=== PATIENT | male | born 1960 | race Caucasian/White ===

== ENCOUNTER 2018-07-08 16:49 | Emergency (ER) | payer OTHER ==
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
--- NOTE | 2018-07-08 18:34 | RAD REPORT ---
EXAM DESCRIPTION: RAD - Pelvis - 07/08/2018 6:06 pm CLINICAL HISTORY: Fall, pelvis and hip pain COMPARISON: None. TECHNIQUE: AP imaging of the pelvis was obtained. FINDINGS: Patient has advanced degenerative change involving the lower 3 disc levels. There is only partial imaging of the lumbar spine. No significant SI joint finding. Minimal degenerative change at the hip joints. No fracture or acute finding identified. Vascular calcifications are present. IMPRESSION: No fracture or acute finding of the pelvis or hip joints. Advanced lumbar spine degenerative change only partially imaged.
--- NOTE | 2018-07-08 18:34 | RAD REPORT ---
EXAM DESCRIPTION: RAD - Hip Right 2 View - 07/08/2018 6:06 pm CLINICAL HISTORY: Slip and fall, right hip pain COMPARISON: None. FINDINGS: AP and frog-leg views of the right hip were obtained. There is no fracture or dislocation . No acute or destructive bony process seen. Lower lumbar degenerative changes are present not fully imaged on this study. IMPRESSION: Negative right hip examination for acute findings.
--- NOTE | 2018-07-08 18:50 | ER ---
Nurse's Notes [facility] Name: Alexandr Wallace Age: 58 yrs Sex: Male : 1960 Arrival Date: 07/08/2018 Time: 16:54 Bed 7 Private MD: out of town, doctor Diagnosis: Strain of muscle, fascia and tendon of right hip Presentation: 07/08 16:54 Presenting complaint: EMS states: pt was lifting a box of screws and twisted to the sg right while at work, felt a pop in his right hip and pain, was able to get into his truck and drive home to call EMS for help, ambulatory at scene per EMS, denies fall or trauma to the area, states just that the right hip hurts at this time. Transition of care: patient was not received from another setting of care. Onset of symptoms was July 08, 2018. Risk Assessment: Do you want to hurt yourself or someone else? Patient reports no desire to harm self or others. Initial Sepsis Screen: Does the patient meet any 2 criteria? No. Patient's initial sepsis screen is negative. Does the patient have a suspected source of infection? No. Patient's initial sepsis screen is negative. Care prior to arrival: IV initiated. 18 GA, in the right forearm. 16:54 Method Of Arrival: EMS: [facility] 16:54 Acuity: HERMANN 4 sg Triage Assessment: 17:05 General: Appears in no apparent distress. comfortable, slender, well groomed, well sg developed, well nourished, Behavior is calm, cooperative, appropriate for age. Pain: Complains of pain in right hip Quality of pain is described as aching, sharp, stabbing. EENT: No signs and/or symptoms were reported regarding the EENT system. Neuro: No deficits noted. Cardiovascular: Patient's skin is warm and dry. Chest pain is denied. Respiratory: Airway is patent Respiratory effort is even, unlabored, Respiratory pattern is regular, symmetrical, Breath sounds are clear. GI: No signs and/or symptoms were reported involving the gastrointestinal system. : No signs and/or symptoms were reported regarding the genitourinary system. Derm: Skin is pink, warm \T\ dry. Musculoskeletal: No signs and/or symptoms reported regarding the musculoskeletal system. Historical: - Allergies: 17:16 Codeine; sg - Home Meds: 17:16 morphine 60 mg Oral CERP 1 cap once daily [Active]; OxyContin 10 mg Oral Tb12 1 tab sg daily [Active]; - PSHx: 17:16 artificial left eye; rods in spine; Cholecystectomy; spleenectomy; multiple ortho sg surgeries; - Immunization history:: Adult Immunizations up to date. - Social history:: Smoking status: Patient/guardian denies using tobacco. - Ebola Screening: : Patient negative for fever greater than or equal to 101.5 degrees Fahrenheit, and additional compatible Ebola Virus Disease symptoms Patient denies exposure to infectious person Patient denies travel to an Ebola-affected area in the 21 days before illness onset No symptoms or risks identified at this time. Screenin:52 Abuse screen: Denies threats or abuse. Denies injuries from another. Nutritional sv screening: No deficits noted. Tuberculosis screening: No symptoms or risk factors identified. Fall Risk None identified. Assessment: 18:20 Reassessment: pt reports having pain that continues to be a 7/10, offered repositioning sg and non pharm measures, all attempts have failed, pt continues to report pain, ERP notified, no new orders received at this time. 18:38 Reassessment: Patient appears in no apparent distress at this time. Patient and/or sg family updated on plan of care and expected duration. Pain level reassessed. Patient is alert, oriented x 3, equal unlabored respirations, skin warm/dry/pink. Patient states feeling better. Vital Signs: 16:54 BP 132 / 72; Pulse 88; Resp 17; Temp 97.1; Pulse Ox 98% on R/A; Pain 7/10; sg 18:00 BP 133 / 70; Pulse 80; Resp 17; Pulse Ox 98% on R/A; Pain 7/10; sg ED Course: 16:54 Patient arrived in ED. sg 16:54 out of town, doctor is Private Physician. sg 16:58 Greyson Hairston MD is Attending Physician. gs 17:15 Triage completed. sg 17:15 Arm band placed on. sg 17:36 X-ray completed. Portable x-ray completed in exam room. Patient tolerated procedure ml well. 17:52 Myke Green, RN is Primary Nurse. sg 17:52 Patient has correct armband on for positive identification. Placed in gown. Bed in low sv position. Adult w/ patient. Door closed. Pillow given. 17:53 Awaiting radiology results. sv 18:07 Hip Right 2 View XRAY In Process Unspecified. EDMS 18:07 Pelvis XRAY In Process Unspecified. EDMS 18:50 Jared Elizabeth MD is Referral Physician. 18:59 No provider procedures requiring assistance completed. IV discontinued, intact, sg bleeding controlled, No redness/swelling at site. Pressure dressing applied. Administered Medications: No medications were administered Outcome: 18:50 Discharge ordered by . gs 18:59 Discharged to home ambulatory, with family. sg 18:59 Discharge instructions given to patient, Instructed on discharge instructions, follow up and referral plans. medication usage, safety practices, Demonstrated understanding of instructions, follow-up care, medications, Prescriptions given X 1. 18:59 Condition: good sg 19:05 Patient left the ED. ph Signatures: Dispatcher [employer] EDDC Zuleyma Waters RN RN sv Gay, Steven, RN RN sg Lopez, Melissa ml Hall, Patricia, RN RN Greyson Hairston MD MD
--- NOTE | 2018-07-08 18:50 | EDPHYS ---
Physician Documentation [facility] Name: Alexandr Wallace Age: 58 yrs Sex: Male : 1960 Arrival Date: 07/08/2018 Time: 16:54 Bed 7 Private MD: out of town, doctor ED Physician Greyson Hairston HPI: 07/08 18:46 This 58 yrs old Male presents to ER via EMS with complaints of Hip Pain. gs 18:46 The patient or guardian reports an injury, pain. that occurred at work, sustained from gs lifting or pulling, twisting and ground level fall. The complaints affect the right hip. Onset: The symptoms/episode began/occurred acutely, just prior to arrival, today. Modifying factors: the symptoms are aggravated by external rotation, internal rotation. Associated signs and symptoms: Pertinent negatives: nausea, vomiting, weakness. Severity of symptoms: At their worst the symptoms were moderate, in the emergency department the symptoms are unchanged. The patient has not experienced similar symptoms in the past. Historical: - Allergies: 17:16 Codeine; sg - Home Meds: 17:16 morphine 60 mg Oral CERP 1 cap once daily [Active]; OxyContin 10 mg Oral Tb12 1 tab sg daily [Active]; - PSHx: 17:16 artificial left eye; rods in spine; Cholecystectomy; spleenectomy; multiple ortho sg surgeries; - Immunization history:: Adult Immunizations up to date. - Social history:: Smoking status: Patient/guardian denies using tobacco. - Ebola Screening: : Patient negative for fever greater than or equal to 101.5 degrees Fahrenheit, and additional compatible Ebola Virus Disease symptoms Patient denies exposure to infectious person Patient denies travel to an Ebola-affected area in the 21 days before illness onset No symptoms or risks identified at this time. ROS: 18:46 All other systems are negative. gs Exam: 18:46 Head/Face: Normocephalic, atraumatic. Eyes: Pupils equal round and reactive to light, gs extra-ocular motions intact. Lids and lashes normal. Conjunctiva and sclera are non-icteric and not injected. Cornea within normal limits. Periorbital areas with no swelling, redness, or edema. ENT: Nares patent. No nasal discharge, no septal abnormalities noted. Tympanic membranes are normal and external auditory canals are clear. Oropharynx with no redness, swelling, or masses, exudates, or evidence of obstruction, uvula midline. Mucous membranes moist. Neck: Trachea midline, no thyromegaly or masses palpated, and no cervical lymphadenopathy. Supple, full range of motion without nuchal rigidity, or vertebral point tenderness. No Meningismus. Chest/axilla: Normal chest wall appearance and motion. Nontender with no deformity. No lesions are appreciated. Cardiovascular: Regular rate and rhythm with a normal S1 and S2. No gallops, murmurs, or rubs. Normal PMI, no JVD. No pulse deficits. Respiratory: Lungs have equal breath sounds bilaterally, clear to auscultation and percussion. No rales, rhonchi or wheezes noted. No increased work of breathing, no retractions or nasal flaring. Abdomen/GI: Soft, non-tender, with normal bowel sounds. No distension or tympany. No guarding or rebound. No evidence of tenderness throughout. Back: No spinal tenderness. No costovertebral tenderness. Full range of motion. Skin: Warm, dry with normal turgor. Normal color with no rashes, no lesions, and no evidence of cellulitis. Neuro: Awake and alert, GCS 15, oriented to person, place, time, and situation. Cranial nerves II-XII grossly intact. Motor strength 5/5 in all extremities. Sensory grossly intact. Cerebellar exam normal. Normal gait. 18:46 Constitutional: The patient appears alert, awake. 18:46 Musculoskeletal/extremity: Extremities: noted in the right hip: tenderness, There is no evidence of swelling, ROM: limited active range of motion due to pain, limited passive range of motion due to pain, Circulation is intact in all extremities. Sensation intact. Vital Signs: 16:54 BP 132 / 72; Pulse 88; Resp 17; Temp 97.1; Pulse Ox 98% on R/A; Pain 7/10; sg 18:00 BP 133 / 70; Pulse 80; Resp 17; Pulse Ox 98% on R/A; Pain 7/10; sg MDM: 17:00 Patient medically screened. 18:46 Differential diagnosis: hip fracture, strain, pelvic fracture. Data reviewed: vital gs signs, nurses notes. Response to treatment: the patient's symptoms have markedly improved after treatment, and as a result, I will discharge patient. 07/08 17:04 Order name: Hip Right 2 View XRAY; Complete Time: 18:45 gs 07/08 17:04 Order name: Pelvis XRAY; Complete Time: 18:45 gs Administered Medications: No medications were administered Disposition: 07/08/18 18:50 Discharged to Home. Impression: Strain of muscle, fascia and tendon of right hip. - Condition is Stable. - Discharge Instructions: Hip Pain. - Prescriptions for Naprosyn 500 mg Oral Tablet - take 1 tablet by ORAL route 2 times per day As needed take with food; 30 tablet. - Medication Reconciliation Form, Thank You Letter, Antibiotic Education, Prescription Opioid Use form. - Follow up: Jared Elizabeth MD; When: 2 - 3 days; Reason: Re-evaluation by your physician. Signatures: Dispatcher [employer] EDMyke Varma RN RN sg Анна Black RN RN ph Hairston, MD MD carlos manuel Rubi Corrections: (The following items were deleted from the chart) 19:05 18:50 07/08/2018 18:50 Discharged to Home. Impression: Strain of muscle, fascia and ph tendon of right hip. Condition is Stable. Forms are Medication Reconciliation Form, Thank You Letter, Antibiotic Education, Prescription Opioid Use. Follow up: Dr. Jared Elizabeth; When: 2 - 3 days; Reason: Re-evaluation by your physician. gs
== END 2018-07-08 19:05 | disposition home or self-care (01) ==
LOC: ER 16:49
DX: S76.011A Strain of muscle, fascia and tendon of right hip, initial encounter (principal); X58.XXXA Exposure to other specified factors, initial encounter; Y93.89 Activity, other specified; Y92.89 Other specified places as the place of occurrence of the external cause; Y99.8 Other external cause status; Z88.5 Allergy status to narcotic agent
CPT/HCPCS: 72170; 99283

== ENCOUNTER 2020-07-15 06:19 | Day surgery (SDC) | payer OTHER ==
--- OUTSIDE RECORDS SUMMARY | 2020-07-15 06:21 | XMS REPORT | Summary of Care ---
:1960 Author Organization [facility] Address [address] [place] [address] Care Team Providers Name Role Phone Tadeo Lemon Primary Care Provider Reason for Visit Reason Comments Follow-up Right hip pain/ requesting i njections Encounter Details Date Type Department Care Team Description 07/04/2020 Office Visit [facility] Beka Titus S, Trochanteric bursitis Orthopaedic Surgery- PAC of right hip (Primary [facility] [address] [place] [address] [place] [id number] Allergies Active Allergy Reactions Severity Noted Date Comments Codeine Anaphylaxis 08/03/2015 documented as of this encounter (statuses as of 07/05/2020) Medications Medication Sig Dispensed Refills Start Date End Date Status oxymorphone (OPANA ER) Take by mouth. 0 Active 40 mg TR12 Oxycodone (DAZIDOX) 10 Take by mouth. 0 Active mg Tab ibuprofen (ADVIL) 200 mg Take 200 mg by 0 Active tablet mouth every 6 (six) hours as needed. MORPHINE SULFATE Take 60 mg by 0 Active (MORPHINE ORAL) mouth daily. diclofenac 75 mg EC Take 1 tablet by 60 tablet 1 10/11/2017 Active tablet mouth 2 (two) times daily with meals. methylPREDNISolone Take 21 tablets 1 Each 0 09/03/2019 Active (MEDROL, MAIKOL,) 4 mg by mouth tabletsIndications: Left SEE-INSTRUCTIONS ankle pain, unspecified . 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 documented as of this encounter Last Filed Vital Signs Vital Sign Reading Time Taken Comments Blood Pressure 127/73 07/04/2020 2:22 PM BEHAVIORAL TECHNICIAN Pulse 84 07/04/2020 2:22 PM BEHAVIORAL TECHNICIAN Temperature - - Respiratory Rate - - Oxygen Saturation - - Inhaled Oxygen Concentration - - Weight 63.5 kg (140 lb) 07/04/2020 2:22 PM BEHAVIORAL TECHNICIAN Height 172.7 cm (5' 8") 07/04/2020 2:22 PM BEHAVIORAL TECHNICIAN Body Mass Index 21.29 07/04/2020 2:22 PM BEHAVIORAL TECHNICIAN documented in this encounter Progress Notes Beka Titus, PAC - 07/04/2020 2:30 PM CST Cc: Chief Complaint Patient presents with Follow-up Right hip pain/ requesting injections Follow up Right hip pain Requesting injections Alexandr Wallace is a 60 year old male. HPI Allergies Alexandr is allergic to codeine. Medications Outpatient Medications Prior to Visit Medication Sig Dispense Refill methylPREDNISolone (MEDROL, MAIKOL,) 4 mg tablets Take 21 tablets by mouth SEE- INSTRUCTIONS. followpackage directions 1 Each 0 diclofenac 75 mg EC tablet Take 1 tablet by mouth 2 (two) times daily with meals. 60 tablet 1 MORPHINE SULFATE (MORPHINE ORAL) Take 60 mg by mouth daily. ibuprofen (ADVIL) 200 mg tablet Take 200 mg by mouth every 6 (six) hours as needed. Oxycodone (DAZIDOX) 10 mg Tab Take by mouth. oxymorphone (OPANA ER) 40 mg TR12 Take by mouth. No facility-administered medications prior to visit. Histories Past Medical History: Diagnosis Date Depression Past Surgical History: Procedure Laterality Date ANKLE ORIF Left 1979 plate and screws EYE SURGERY OTHER neck surgery REMOVAL GALLBLADDER SPINE SURGERY Social History Socioeconomic History Marital status: Single Spouse name: Not on file Number of children: Not on file Years of education: Not on file Highest education level: Not on file Occupational History Not on file Social Needs Financial resource strain: Not on file Food insecurity Worry: Not on file Inability: Not on file Transportation needs Medical: Not on file Non-medical: Not on file Tobacco Use Smoking status: Current Every Day Smoker Smokeless tobacco: Never Used Substance and Sexual Activity Alcohol use: Yes Alcohol/week: 0.0 standard drinks Drug use: Yes Comment: Marijuana Sexual activity: Not on file Lifestyle Physical activity Days per week: Not on file Minutes per session: Not on file Stress: Not on file Relationships Social connections Talks on phone: Not on file Gets together: Not on file Attends anglican service: Not on file Active member of club or organization: Not on file Attends meetings of clubs or organizations: Not on file Relationship status: Not on file Intimate partner violence Fear of current or ex partner: Not on file Emotionally abused: Not on file Physically abused: Not on file Forced sexual activity: Not on file Other Topics Concern Not on file Social History Narrative Not on file Family History Problem Relation Age of Onset Heart Mother Cancer Father Review of Systems Constitutional: Negative. HENT: Negative. Eyes: Negative. Respiratory: Negative. Breasts: Negative. Cardiovascular: Negative. Gastrointestinal: Negative. Genitourinary: Negative. Musculoskeletal: Positive for joint swelling. Skin: Negative. Neurological: Negative. Psychiatric/Behavioral: Negative. Endocrine: Endocrine negative Vital Signs There were no vitals taken for this visit. Physical Exam Neck: Musculoskeletal: Normal range of motion. Musculoskeletal: Comments: Physical Exam Constitutional: oriented to person, place, and time. appears well-developed and well-nourished. HENT: Head: Normocephalic and atraumatic. Right Ear: External ear normal. Left Ear: External ear normal. Eyes: Conjunctivae are normal. Neck: Normal range of motion. No strabismus Neck supple. Cardiovascular: Normal rate and regular rhythm. Pulmonary/Chest: Normal respiratory rate equal chest rise and fall in no apparent distress Abdominal: Abdomen nondistended nontender Neurological: alert and oriented to person, place, and time. No asymmetry Skin: Skin is warm and dry. Psychiatric: normal mood and affect. behavior is normal. Judgment and thought content normal. Nursing note and vitals reviewed. Right trochanteric pain Assessment/Plan 1. Trochanteric bursitis of right hip injection to her right hip greater trochanter patient was taken to the injection room the area was examined under ultrasound and with palpation to find the point of maximal intensity at the central portion of the rock small greater trochanter where her trochanteric bursa lies. The area was prepped with Betadine 3 times and once with alcohol then dried with anesthetic spray was used prior to insertion of the 22-gauge spinal needle spinal needle was advanced to the greater trochanteric to her and withdrawn 1-2 mm under ultrasound guidance the medication was clearly seen to go into the trochanteric bursal region. 2 cc of Kenalog 80 mg and 3 cc of lidocaine were injected. The skin was cleansed with alcohol and dried with a sterile 4 x 4 and a sterile Band-Aid applied patient tolerated procedure well VIORAL TECHNICIAN documented in this encounter Plan of Treatment Health Maintenance Due Date Last Done Comments HEPATITIS C (HCV) SCREEN 1960 PNEUMOCOCCAL 0-64 YEARS COMBINED 1964 SERIES (1 of 1 - PPSV23) DTaP,Tdap,and Td Vaccines (1 - Tdap) 1977 COLON CANCER SCREENING ANNUAL 2008 FIT/FOBT COLON CANCER SCREENING FIT DNA EVERY 2008 3 YEARS COLON CANCER SCREENING SIGMOIDOSCOPY 2008 EVERY 5 YEARS COLONOSCOPY 2008 Colorectal Cancer Screening 2008 Zoster Recombinant Vaccine (SHINGRIX) 2008 (1 of 2) LUNG CANCER SCREEN: Recommended for 2013 age 55-80 with 30 + pack year history Depression Screening 09/03/2020 09/03/2019 INFLUENZA VACCINE Completed 04/05/2020, 09/12/2016, 04/22/2015 documented as of this encounter Results Not on filedocumented in this encounter Visit Diagnoses Diagnosis Trochanteric bursitis of right hip - Gabriella yeny Enthesopathy of hip region documented in this encounter Insurance Payer Benefit Plan / Subscriber ID Effective Dates Phone Addre ss Type Group MEDICARE MEDICARE PART [id number] 2008-Prese [phone] Medicare A & B [id number] [place] [id number] [facility] MEDICAID OF [id number] 2011-Presen [phone] [address] Medicaid [place] [id number] [place] [address] documented as of this encounter
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
--- OUTSIDE RECORDS SUMMARY | 2020-07-15 06:21 | XMS REPORT | Summary of Care ---
:1960 Author Organization [facility] Address [address] [place] [id number] Care Team Providers Name Role Phone Tadeo Lemon Primary Care Provider Reason for Visit Reason Comments Follow-up Right hip pain/ requesting i njections Encounter Details Date Type Department Care Team Description 07/04/2020 Office Visit [facility] Beka Titus S, Trochanteric bursitis Orthopaedic Surgery- PAC of right hip (Primary [place] [address] [place] [address] [place] [id number] [phone] Allergies Active Allergy Reactions Severity Noted Date [...] with No / Unsure 07/04/2020 2:17 PM COUTIERIER someone who was confirmed or suspected to have Coronavirus / COVID-19? documented as of this encounter Last Filed Vital Signs Vital Sign Reading Time Taken Comments Blood Pressure 127/73 07/04/2020 2:22 PM COUTIERIER Pulse 84 07/04/2020 2:22 PM COUTIERIER Temperature - - Respiratory Rate - - Oxygen Saturation - - Inhaled Oxygen Concentration - - Weight 63.5 kg (140 lb) 07/04/2020 2:22 PM COUTIERIER Height 172.7 cm (5' 8") 07/04/2020 2:22 PM COUTIERIER Body Mass Index 21.29 07/04/2020 2:22 PM COUTIERIER documented in this encounter Progress Notes Beka [...] file Gets together: Not on file Attends mandaen service: Not on file Active member of [...] sterile Band-Aid applied patient tolerated procedure well IERIER documented in this encounter Plan of Treatment [...] Addre ss Type Group MEDICARE MEDICARE PART [id number] 2008-Prese [phone] Medicare A & B [address] [id number] [place] [id number] [facility] MEDICAID OF [id number] 2011-Presen [phone] [address] Medicaid [place] t 0 [id number] [place] [address] documented as of this encounter
[2020-07-15] MEDS ORDERED: Ringers Lactate 1,000 ML IV ONE (06:58)
[2020-07-15] MEDS ORDERED: MIDAZOLAM HCL 2 MG/2 ML INJ ONE (07:12)
[2020-07-15] MEDS ORDERED: propofoL 200 MG/20 ML VIAL IV ONE (07:12)
[2020-07-15] MEDS ORDERED: ROCURONIUM 50 MG/5 ML VIAL IV ONE (07:17)
[2020-07-15] MEDS ORDERED: LIDOCAINE 2% MPF 5 ML VIAL ONE (07:17)
[2020-07-15] MEDS ORDERED: dexAMETHasone 10 MG/ML VIAL ONE (07:17)
[2020-07-15] MEDS ORDERED: FENTANYL CITR 250 MCG/5 ML ONE (07:17)
[2020-07-15] MEDS ORDERED: IBUPROFEN 200 MG TAB PO ONE (07:18)
[2020-07-15] MEDS ORDERED: GABAPENTIN 100 MG CAP ONE (07:18)
[2020-07-15] MEDS ORDERED: LIDOCAINE 1% W/EPI 1:100,000 MDV 50 ML VIAL ONE (07:21)
[2020-07-15] MEDS ORDERED: EPHEDRINE SULF 50 MG/ML VIAL ONE (08:04)
--- NOTE | 2020-07-15 08:51 | P.BOP ---
Preoperative diagnosis: right parotid mass Postoperative diagnosis: same with cervical lymphadenopathy Primary procedure: right superficial parotidectomy without facial nerve dissectomy Secondary procedure: selective neck dissection Graphite Disk Assembler: MARIEL ACEVES Estimated blood loss: <10ml Specimen: right inferior parotid, level 2 right neck contents Findings: 1 x [address] Anesthesia: General Complications: None Drain(s): DAHLIA drain Fluids & blood products: crystalloid 650ml Transferred to: Recovery Room Condition: Good
[2020-07-15] MEDS ORDERED: Mastisol Adhesive Liq ONE (08:55)
[2020-07-15] MEDS ORDERED: KETOROLAC 30 MG/ML INJ ONE (09:17)
[2020-07-15] MEDS ORDERED: ONDANSETRON 4 MG/2 ML VIAL ONE (09:25)
[2020-07-15 10:48] VITALS: BP 131/70; TEMP 97.6; O2SAT 100
--- NOTE | 2020-07-15 22:37 | OP ---
Surgeon: Zuleyma Moreno MD Staff Development Educator: Carmen Shepherd. Preoperative Diagnosis: Right parotid mass. Postoperative Diagnoses: Right parotid mass and level 2 cervical lymphadenopathy. Procedure: Right superficial parotidectomy without facial nerve dissection and right selective neck dissection. Indication For Procedure: Alexandr presented with a right neck/parotid mass that performed a fine-needl e aspiration, which demonstrated a salivary mass of uncertain behavior. A recommendation was made fo r surgery, however, the patient had relocated to [place]. I spoke with the patient and recommended he seek care locally, but he was lost to follow up. He re-presented approximately 7 months later wit h stable findings on physical exam and surgical intervention was recommended. The initial planned christiansen rgery for parotidectomy was modified to include neck dissection based on intraoperative findings. Complications: None. Specimens: Right superficial parotid and level 2 neck contents. Description Of Procedure: The patient was brought to the operating room. He was placed under genera l anesthesia via oral endotracheal tube. A shoulder roll was placed and the neck was extended. The head was turned to the left for exposure of the right neck. The mass was palpated and was noted to l ie just inferior and posterior to the angle of the mandible and consisted of 2 discrete masses, each approximately 2 to 2.5 cm. The planned incision site was injected with 1% lidocaine with epinephrine . A total of 4 mL were used. The neck was then prepped with Betadine and draped in a sterile fashio n. A 4 cm incision was made through the skin, subcutaneous tissues, and platysma. Subplatysmal flap s were elevated and retracted. The anterior border of the sternocleidomastoid muscle was noted and i nitial dissection was begun about a cm below the inferior aspect of the palpable mass. During tissue dissection, the LigaSure was used to divide soft tissue attachments and the mass was circumferential ly dissected. The mass was attached at its superior aspect to the inferior/tail of the parotid and a small portion of the parotid tissue was excised with the main specimen. The lesion was inferior gris ugh that formal dissection of the facial nerve was not undertaken, so care was taken during dissectio n to observe for any branches. There was no significant twitching or movement of the face noted duri ng dissection. The specimen was removed and prepared to be sent to pathology for permanent section. During inspection of the surgical site, there was no significant bleeding. The area was carefully p alpated in light of fine-needle aspiration. During palpation, there was a 1 x 2 cm mass located with in the level 2 neck and decision was made to proceed with selective neck dissection for removal of th is contents. The anterior border of the sternocleidomastoid was carefully dissected and retracted po steriorly. The internal jugular vein was identified and careful dissection along the jugular vein wa s carried out in the inferior to superior direction. The ansa cervicalis nerve was identified and ca refully protected and the soft tissue content dissected anterior to posterior. In that regard, the s liliam accessory nerve was identified and carefully protected and level 2A of the neck was removed. P alpation of the specimen confirmed the previously noted lymph node and additional approximately 1 cm lymph node and 2 additional small relatively normal sized lymph nodes. The specimen was sent with e parotid to pathology. Additional careful palpation of the surgical bed was performed and there was no other significant lymphadenopathy noted. There was no apparent injury to the dissected nerves or major blood vessels. The surgical bed was thoroughly irrigated with aliquots of sterile saline. A 10-Frisian round DAHLIA drain was passed through the posterior inferior skin flap and secured with 4-0 nyl on suture. The incision was then closed in a layered fashion using 4-0 Vicryl deep sutures and a 5-0 Monocryl subcuticular suture. The wound was then dressed with Mastisol and Steri-Strips. The patie nt was returned to care of anesthesia for extubation, which proceeded without difficulty. The patien t was transported to the recovery room and will be discharged home later today in the care of his [facility]. The patient states he has adequate pain medications at home as part of his overall chronic pain management and does not require additional prescription at this time. The patient will follow up on Saturday for removal of hi s DAHLIA drain. DIRK/SMITH Voice ID: [id number] Report ID: [id number]
== END 2020-07-15 10:20 | disposition home or self-care (01) ==
LOC: OR 06:19
PROVIDERS: ATTEND Otolaryngology
PROC: 07B10ZX Excision of Right Neck Lymphatic, Open Approach, Diagnostic (ICD-10-PCS; 2020-07-15)
PROC: 0CB80ZZ Excision of Right Parotid Gland, Open Approach (ICD-10-PCS; principal; 2020-07-15 07:30)
DX: D11.0 Benign neoplasm of parotid gland (principal); Z20.828 Contact with and (suspected) exposure to other viral communicable diseases; F17.210 Nicotine dependence, cigarettes, uncomplicated; R03.0 Elevated blood-pressure reading, without diagnosis of hypertension
CPT/HCPCS: 88307; 42410; 38999; U0002; J2704; J3010; J1100; J7120; J2405; 88305; J2250

== ENCOUNTER 2023-07-12 07:55 | Day surgery (SDC) | payer OTHER ==
[2023-07-10 16:15] LABS: Potassium 4.5 mEq/L (3.5-5.1)
[2023-07-12] MEDS ORDERED: Ringers Lactate 1,000 ML IV ONE (08:11)
[2023-07-12] MEDS ORDERED: MIDAZOLAM HCL 2 MG/2 ML INJ ONE ×2 (09:13→09:20)
[2023-07-12] MEDS ORDERED: propofoL 200 MG/20 ML VIAL IV ONE (09:13)
[2023-07-12] MEDS ORDERED: LIDOCAINE 1% MPF 2 ML AMPULE ONE (09:13)
[2023-07-12] MEDS ORDERED: LIDOCAINE 1% MPF 30 ML VIAL ONE (09:20)
[2023-07-12 12:13] VITALS: TEMP 97.9; O2SAT 100
[2023-07-12 12:30] VITALS: BP 113/58
--- NOTE | 2023-07-12 15:25 | EKG ---
Test Date: 2023-07-10 Test Time: 16:51:41 Construction Checker: SHANI MEASUREMENT RESULTS: Intervals: Rate: 61 MN: 138 QRSD: 88 QT: 406 QTc: 408 Alvo: P: 78 MN: 138 QRS: 86 T: 82 INTERPRETIVE STATEMENTS: Normal sinus rhythm with sinus arrhythmia Normal ECG No previous ECG available for comparison Electronically Signed On 07-12-23 15:20:33 POND SUPERVISOR by Abhinav Suero
== END 2023-07-12 10:30 | disposition home or self-care (01) ==
LOC: OR 07:55
PROVIDERS: ATTEND Surgery
PROC: 0DB68ZX Excision of Stomach, Via Natural or Artificial Opening Endoscopic, Diagnostic (ICD-10-PCS; 2023-07-12)
PROC: 0DB58ZX Excision of Esophagus, Via Natural or Artificial Opening Endoscopic, Diagnostic (ICD-10-PCS; 2023-07-12)
PROC: 0DB48ZX Excision of Esophagogastric Junction, Via Natural or Artificial Opening Endoscopic, Diagnostic (ICD-10-PCS; 2023-07-12)
PROC: 0DB98ZX Excision of Duodenum, Via Natural or Artificial Opening Endoscopic, Diagnostic (ICD-10-PCS; principal; 2023-07-12 09:30)
DX: K22.2 Esophageal obstruction (principal); R13.10 Dysphagia, unspecified; K31.9 Disease of stomach and duodenum, unspecified; K31.A19 Gastric intestinal metaplasia without dysplasia, unspecified site
CPT/HCPCS: 43250; 93005; 80048; 36415; 88312; 88305; J2704; J2001; J2250 ×2; J7120

== ENCOUNTER 2024-07-28 02:06 | Emergency (ER) | payer OTHER ==
[2024-07-28] MEDS ORDERED: FENTANYL CITR 100 MCG/2 ML ONE ×2 (02:38→04:06)
[2024-07-28] MEDS ORDERED: NA CHLORIDE 0.9% 500 ML ONE (02:43)
[2024-07-28 03:12] LABS: Absolute Eosinophils 0.8 K/uL (0-0.5); Absolute Lymphocytes (CBC) 3.5 K/uL (0.7-4.9); Absolute Monocytes 0.9 K/uL (0.1-1.3); Absolute Neutrophil 4.3 K/uL (1.8-8.0); Basophils % 0.3 % (0-1.3); Eosinophils % 8.9 % (0-4.4); Lymphocytes % 36.6 % (15.3-44.8); MCH 33.9 pg (27.0-35.0); MCHC 33.2 g/dL (32.0-36.0); MCV 101.9 fL (80-100); Monocytes % 9.1 % (3.3-12.3); Neutrophils % 45.1 % (41.7-73.7); Platelets 252 thou/uL (152-406); RBC Red Blood Cell Count 3.53 M/uL (4.33-5.43); Red Cell Distribution Width 12.8 % (12.1-15.2)
[2024-07-28 03:14] LABS: PTT, Activated Partial Thromb 30.9 SECONDS (24.3-36.9); Protime INR 1.17
[2024-07-28 03:28] LABS: AST/SGOT 11 U/L (15-37); Albumin 2.8 g/dL (3.4-5.0); Albumin/Globulin Ratio 0.7 (1.1-1.8); Alkaline Phosphatase 63 U/L (45-117); Anion Gap 7.6 mEq/L (5.0-15.0); BUN Blood Urea Nitrogen 23 mg/dL (7-18); Bicarbonate 29 mEq/L (21-32); Bilirubin Total 0.3 mg/dL (0.2-1.0); Glomerular Filtration Rate 103 ml/min (=/>90); Glucose Level 109 mg/dL (74-106); Magnesium 1.8 mg/dL (1.6-2.4); Potassium 3.6 mEq/L (3.5-5.1); Protein, Total 6.8 g/dL (6.4-8.2); Sodium Level 139 mEq/L (136-145); Troponin High Sensitivity 3.8 pg/mL (<58.9)
[2024-07-28 03:29] LABS: ALT/SGPT < 14 U/L (16-61); Bilirubin Direct < 0.2 mg/dL (0-0.2); Bilirubin Indirect, Calculated 0.1 mg/dL (0.2-0.8)
--- NOTE | 2024-07-28 06:13 | RAD REPORT ---
EXAM DESCRIPTION: Chest Single View CLINICAL HISTORY: surgical site bleeding COMPARISON: None TECHNIQUE: Single AP view of the chest. FINDINGS: Lung volumes adequate. Cardiac silhouette is normal in size. No pneumothorax. No large pleural effusion. Minimal bibasilar reticular opacities, could represent atelectatic change. No acute bony finding. Cervicothoracic spine hardware noted. IMPRESSION: Minimal bibasilar reticular opacities, could represent atelectatic change. Otherwise no acute cardiop ulmonary findings. Electronically signed by: Julia Palm MD 07/28/2024 05:58 AM [facility] Z9 Due to temporary technical issues with the PACS/[employer] reporting system, reports are being von d by the in-house radiologist without review as a courtesy to ensure prompt reporting the interpreting radiologist is fully responsible for the content of the report. Transcribed Date/Time: 07/28/2024 6:12 AM
--- NOTE | 2024-07-28 06:26 | ER ---
Nurse's Notes [facility] Name: Alexandr Wallace Age: 64 yrs Sex: Male : 1960 Arrival Date: 07/28/2024 Time: 02:06 Bed 5 Private MD: Diagnosis: Postprocedural hemorrhage of skin and subcutaneous tissue following other procedure-stable Presentation: 07/28 02:35 Method Of Arrival: Ambulatory al5 02:35 Acuity: HERMANN 3 al5 02:35 Chief complaint: Patient states: c/o post surgical bleeding to his neck, recently had al5 his neck fused. Coronavirus screen: At this time, the client does not indicate any symptoms associated with coronavirus-19. Ebola Screen: No symptoms or risks identified at this time. Initial Sepsis Screen: Does the patient meet any 2 criteria? HR > 90 bpm. No. Patient's initial sepsis screen is negative. Does the patient have a suspected source of infection? No. Patient's initial sepsis screen is negative. Risk Assessment: Do you want to hurt yourself or someone else? Patient reports no desire to harm self or others. Onset of symptoms was July 27, 2024. Historical: - Allergies: 02:35 Codeine; al5 - PSHx: 02:35 neck fusion; al5 - Immunization history:: Adult Immunizations up to date. - Infectious Disease History:: Denies. - Social history:: Smoking status: unknown. Screenin:35 [facility] ED Fall Risk Assessment (Adult) History of falling in the last 3 months, al5 including since admission No falls in past 3 months (0 pts) Confusion or Disorientation No (0 pts) Intoxicated or Sedated No (0 pts) Impaired Gait No (0 pts) Mobility Assist Device Used No (0 pt) Altered Elimination No (0 pt) Score/Fall Risk Level 0 - 2 = Low Risk Oriented to surroundings, Maintained a safe environment, Hourly rounding (assess needs \T\ fall precautionary measures) done. Abuse screen: Denies threats or abuse. Denies injuries from another. Nutritional screening: No deficits noted. Tuberculosis screening: No symptoms or risk factors identified. Assessment: 02:35 General: Appears in no apparent distress. uncomfortable, Behavior is calm, cooperative. al5 Pain: Complains of pain in left aspect of thyroid and left sternocleidomastoid. Neuro: Level of Consciousness is awake, alert, obeys commands, Oriented to person, place, time, situation. Cardiovascular: Capillary refill < 3 seconds Patient's skin is warm and dry. Respiratory: Airway is patent Respiratory effort is even, unlabored, Respiratory pattern is regular, symmetrical. GI: No signs and/or symptoms were reported involving the gastrointestinal system. : No signs and/or symptoms were reported regarding the genitourinary system. EENT: No signs and/or symptoms were reported regarding the EENT system. Derm: post surgical wound to neck, no active bleeding at this time, but has some blood to a towel patient brought in. Musculoskeletal: No signs and/or symptoms reported regarding the musculoskeletal system. 04:10 Reassessment: Patient appears in no apparent distress at this time. No changes from al5 previously documented assessment. Patient and/or family updated on plan of care and expected duration. Pain level reassessed. Patient is alert, oriented x 3, equal unlabored respirations, skin warm/dry/pink. still is having pain in his neck, provider aware and med order placed. 05:29 Reassessment: Patient appears in no apparent distress at this time. Patient and/or al5 family updated on plan of care and expected duration. Pain level reassessed. Patient is alert, oriented x 3, equal unlabored respirations, skin warm/dry/pink. pain has decreased from an 8-9/10 to about a 6-7/10. 06:31 Reassessment: Patient appears in no apparent distress at this time. Patient and/or al5 family updated on plan of care and expected duration. Pain level reassessed. Patient is alert, oriented x 3, equal unlabored respirations, skin warm/dry/pink. patient states he feels better and wants to go home. patient discharged with discharge instructions and follow up. Vital Signs: 02:25 BP 132 / 77 LA Sitting (auto/); Pulse 77; Temp 98.5; Pulse Ox 96% on R/A; sa1 02:30 BP 131 / 78; Pulse 91; Resp 19; Pulse Ox 96% on R/A; al5 02:45 BP 130 / 72; Pulse 87; Resp 20; Pulse Ox 95% on R/A; al5 03:00 BP 118 / 58; Pulse 89; Resp 13; Pulse Ox 95% on R/A; al5 04:00 BP 122 / 70; Pulse 82; Resp 23; Pulse Ox 95% on R/A; al5 04:30 BP 135 / 76; Pulse 86; Resp 22; Pulse Ox 94% on R/A; al5 05:00 BP 124 / 79; Pulse 82; Resp 17; Pulse Ox 95% on R/A; al5 ED Course: 02:09 Patient arrived in ED. [email or web address] 02:10 Dewayne Lemus PA is PHCP. cp 02:10 Dewayne Rivera MD is Attending Physician. cp 02:26 Radiology exam delayed due to lab results not completed at this time. (BUN/Creatinine) nj IV insertion attempt and/or patient not having appropriate IV at this time. 02:33 Gissell Nelson, SYED is Primary Nurse. al5 02:35 Patient has correct armband on for positive identification. Bed in low position. Call al5 light in reach. Side rails up X 1. Provided Education on: plan of care. 02:35 Arm band placed on right wrist. Patient placed in the treatment room, on a stretcher, al5 on pulse oximetry. 02:35 No provider procedures requiring assistance completed. Inserted saline lock: 20 gauge al5 in right antecubital area, using aseptic technique. Blood collected. Flushed with 10 mL NS. 02:55 Triage completed. al5 03:00 XRAY Chest (1 view) In Process Unspecified. EDMS 03:59 CT Soft Tissue Neck W/contr In Process Unspecified. EDMS 06:32 IV discontinued, intact, bleeding controlled, No redness/swelling at site. Pressure al5 dressing applied. Administered Medications: 02:48 Drug: fentaNYL (PF) IVP 25 mcg IVP once Route: IVP; Site: right antecubital; al5 04:02 Follow up: Response: No adverse reaction; Pain is unchanged, physician notified al5 02:49 Drug: NS 0.9% IV 500 ml 500 ml IV at 1 bolus once; to be given as a bolus over 60 al5 minutes Volume: 500 ml; Route: IV; Rate: 1 bolus; Site: right antecubital; 04:00 Follow up: Response: No adverse reaction; IV Status: Completed infusion; IV Intake: al5 500ml 03:49 CANCELLED (Physician Discretion): fentanyl (pf)25 mcg IVP once cp 04:10 Drug: fentaNYL (PF) IVP 50 mcg IVP once Route: IVP; Site: right antecubital; al5 05:29 Follow up: Response: No adverse reaction; Pain is decreased al5 Medication: 03:02 VIS not applicable for this client. al5 Intake: 04:00 IV: 500ml; Total: 500ml. al5 Outcome: 06:25 Discharge ordered by . angela 06:32 Discharged to home ambulatory, al5 06:32 Condition: good 06:32 Discharge instructions given to patient, Instructed on discharge instructions, follow up and referral plans. Demonstrated understanding of instructions, follow-up care, 06:32 Patient left the ED. al5 Signatures: Dispatcher [employer] EDMS Dewayne Rivera MD MD cha Page, Corey, PA PA cp Jordan, Nathan nj Jeffries, Jennifer [id number] Gissell Nelson RN RN al5 Sultan Norma 1 Corrections: (The following items were deleted from the chart) 02:53 Chief complaint: Patient states: c/o post surgical bleeding to his neck, recently al5 had his neck fused. 02:53 Coronavirus screen: At this time, the client does not indicate any symptoms al5 associated with coronavirus-19. al5 02:53 Ebola Screen: No symptoms or risks identified at this time. al5 02:53 Initial Sepsis Screen: Does the patient meet any 2 criteria? HR > 90 bpm. No. al5 Patient's initial sepsis screen is negative. Does the patient have a suspected source of infection? No. Patient's initial sepsis screen is negative. 5 02:53 Risk Assessment: Do you want to hurt yourself or someone else? Patient reports no al5 desire to harm self or others. al5 02:53 Onset of symptoms was July 27, 2024 al5 al5 02:53 Method Of Arrival: Ambulatory al5 02:53 Acuity: HERMANN 3 al5 al5
--- NOTE | 2024-07-28 06:26 | EDPHYS ---
Physician Documentation [facility] Name: Alexandr Wallace Age: 64 yrs Sex: Male : 1960 Arrival Date: 07/28/2024 Time: 02:06 Bed 5 Private MD: ED Physician Dewayne Rivera HPI: 07/28 02:25 This 64 yrs old Male presents to ER via Ambulatory with complaints of Post Surgical cp Bleeding. 02:25 The patient or guardian complains of bleeding from anterior neck surgical site. Onset: cp The symptoms/episode began/occurred today. Associated signs and symptoms: Pertinent negatives: chills, fever, headache, numbness, vomiting, weakness. Severity of symptoms: in the emergency department the symptoms have improved. 02:25 Patient reports having anterior neck fusion surgery performed this past . cp Historical: - Allergies: 02:35 Codeine; al5 - PSHx: 02:35 neck fusion; al5 - Immunization history:: Adult Immunizations up to date. - Infectious Disease History:: Denies. - Social history:: Smoking status: unknown. ROS: 02:30 Constitutional: Negative for body aches, chills, fever, poor PO intake, cp 02:30 Eyes: Negative for injury, pain, redness, and discharge, cp 02:30 Cardiovascular: Negative for chest pain, 02:30 Respiratory: Negative for cough, shortness of breath, wheezing, 02:30 Abdomen/GI: Negative for abdominal pain, nausea, vomiting, and diarrhea, 02:30 Skin: Positive for history of bleeding from anterior neck surgical site, 02:30 All other systems are negative, Exam: 02:35 Head/Face: Normocephalic, atraumatic. cp 02:35 Constitutional: The patient appears in no acute distress, alert, awake, non-diaphoretic, non-toxic, well developed, well nourished, uncomfortable, 02:35 Eyes: Periorbital structures: appear normal, Conjunctiva: normal, no exudate, no injection, Sclera: no appreciated abnormality, Lids and lashes: appear normal, bilaterally, 02:35 ENT: External ear(s): are unremarkable, Nose: is normal, Mouth: Lips: moist, Oral mucosa: moist, Posterior pharynx: Airway: no evidence of obstruction, patent, 02:35 Neck: External neck: surgical incision anterior neck appears with no active bleeding, mild ecchymosis noted, mild swelling, 02:35 Chest/axilla: Inspection: normal, 02:35 Cardiovascular: Rate: normal, Rhythm: regular, Edema: is not appreciated, JVD: is not appreciated, 02:35 Respiratory: the patient does not display signs of respiratory distress, Respirations: normal, no use of accessory muscles, no retractions, labored breathing, is not present, Breath sounds: are clear throughout, no decreased breath sounds, no stridor, no wheezing, 02:35 Abdomen/GI: Inspection: abdomen appears normal, Palpation: abdomen is soft and non-tender, in all quadrants, 02:35 Neuro: Orientation: to person, place \T\ time. Mentation: is normal, Motor: moves all fours, strength is normal, 02:45 ECG was reviewed by the Attending Physician. Vital Signs: 02:25 BP 132 / 77 LA Sitting (auto/); Pulse 77; Temp 98.5; Pulse Ox 96% on R/A; sa1 02:30 BP 131 / 78; Pulse 91; Resp 19; Pulse Ox 96% on R/A; al5 02:45 BP 130 / 72; Pulse 87; Resp 20; Pulse Ox 95% on R/A; al5 03:00 BP 118 / 58; Pulse 89; Resp 13; Pulse Ox 95% on R/A; al5 04:00 BP 122 / 70; Pulse 82; Resp 23; Pulse Ox 95% on R/A; al5 04:30 BP 135 / 76; Pulse 86; Resp 22; Pulse Ox 94% on R/A; al5 05:00 BP 124 / 79; Pulse 82; Resp 17; Pulse Ox 95% on R/A; al5 MDM: 02:12 Medical Screening Exam initiated angela 03:00 Differential diagnosis: hematoma, anemia, abscess. cp 04:30 Data reviewed: vital signs, nurses notes, lab test result(s), EKG, I have discussed the cp patient's presentation/case with the attending Emergency Department Physician; and as a result, I will discharge patient. 07/28 02:24 Order name: Basic Metabolic Panel; Complete Time: 03:49 cp 07/28 03:49 Interpretation: Normal except: GLUC 109; BUN 23; CRE 0.67. cp 07/28 02:24 Order name: CBC with Diff; Complete Time: 03:19 cp 07/28 03:19 Interpretation: Normal except: RBC 3.53; HGB 12.0; HCT 36.0; MCV 101.9; EOSINOPHIL % cp 8.9; EOSA 0.8. 07/28 02:24 Order name: LFT's; Complete Time: 03:49 cp 07/28 03:50 Interpretation: Normal except: AST 11; ALT < 14; IBILI, CALC 0.1; ALB 2.8; GLOB 4.0; cp A/G 0.7. 07/28 02:24 Order name: Magnesium; Complete Time: 03:49 cp 07/28 02:24 Order name: PT-INR; Complete Time: 03:19 cp 07/28 04:22 Interpretation: Reviewed. 07/28 02:24 Order name: Troponin HS; Complete Time: 03:49 cp 07/28 02:24 Order name: Ptt, Activated; Complete Time: 03:19 cp 07/28 03:20 Interpretation: Reviewed. 07/28 02:24 Order name: XRAY Chest (1 view) 07/28 02:24 Order name: CT Soft Tissue Neck W/contr cp 07/28 02:24 Order name: EKG; Complete Time: 02:24 cp 07/28 02:24 Order name: Cardiac monitoring; Complete Time: 02:49 cp 07/28 02:24 Order name: EKG - Nurse/Tech; Complete Time: 02:34 cp 07/28 02:24 Order name: IV Saline Lock; Complete Time: 02:34 cp 07/28 02:24 Order name: Labs collected and sent; Complete Time: 02:34 cp 07/28 02:24 Order name: O2 Per Protocol; Complete Time: 02:34 cp 07/28 02:24 Order name: O2 Sat Monitoring; Complete Time: 02:34 cp EC:45 Rate is 94 beats/min. Rhythm is regular. ME interval is normal. QRS interval is normal. cp QT interval is normal. T waves are Inverted in leads V2, V3, V4. Interpreted by me. Reviewed by me. Administered Medications: 02:48 Drug: fentaNYL (PF) IVP 25 mcg IVP once Route: IVP; Site: right antecubital; al5 04:02 Follow up: Response: No adverse reaction; Pain is unchanged, physician notified al5 02:49 Drug: NS 0.9% IV 500 ml 500 ml IV at 1 bolus once; to be given as a bolus over 60 al5 minutes Volume: 500 ml; Route: IV; Rate: 1 bolus; Site: right antecubital; 04:00 Follow up: Response: No adverse reaction; IV Status: Completed infusion; IV Intake: al5 500ml 03:49 CANCELLED (Physician Discretion): fentanyl (pf)25 mcg IVP once cp 04:10 Drug: fentaNYL (PF) IVP 50 mcg IVP once Route: IVP; Site: right antecubital; al5 05:29 Follow up: Response: No adverse reaction; Pain is decreased al5 Disposition Summary: 07/28/24 06:25 Discharge Ordered Notes: Location: Home angela Problem: new angela Symptoms: have improved angela Condition: Stable angela Diagnosis - Postprocedural hemorrhage of skin and subcutaneous tissue following other procedure angela - stable Followup: cp - With: Private Physician - When: 2 - 3 days - Reason: Wound Recheck Discharge Instructions: - Discharge Summary Sheet cp - How to Change Your Wound Dressing cp Forms: - Medication Reconciliation Form angela - Antibiotic Education angela - Prescription Opioid Use angela - Patient Portal Instructions angela - Leadership Thank You Letter [facility] Addendum: 07/29/2024 06:43 Co-signature as Attending Physician, Dewayne Rivera MD I agree with the assessment and c hathaway plan of care. Signatures: Dispatcher [employer] Dewayne Camargo MD MD cha Page, Corey PA PA Gissell Choudhury RN RN al5 Corrections: (The following items were deleted from the chart) 07/28 02:24 02:24 Thorax W/ Con+CT.RAD.BRZ ordered. EDIL EDMS 03:49 03:49 fentaNYL (PF) IVP 25 mcg IVP once ordered. cp cp 07/29 01:55 07/27 02:35 Constitutional: The patient appears in no acute distress, alert, awake, cp non-diaphoretic, non-toxic, well developed, well nourished, uncomfortable, cp 07/29 01:55 07/27 02:35 Head/Face: Normocephalic, atraumatic. cp cp 07/29 00:55 07/27 02:35 Eyes: Periorbital structures: appear normal, Conjunctiva: normal, no cp exudate, no injection, Sclera: no appreciated abnormality, Lids and lashes: appear normal, bilaterally, cp 07/29 02:35 ENT: External ear(s): are unremarkable, Nose: is normal, Mouth: Lips: cp moist, Oral mucosa: moist, Posterior pharynx: Airway: no evidence of obstruction, patent, cp 07/29 02:35 Neck: External neck: surgical incision anterior neck appears with no active cp bleeding, mild ecchymosis noted, mild swelling, cp 07/29 02:35 Chest/axilla: Inspection: normal, cp cp 07/29 02:35 Cardiovascular: Rate: normal, Rhythm: regular, Edema: is not appreciated, cp JVD: is not appreciated, cp 07/29 02:35 Respiratory: the patient does not display signs of respiratory distress, cp Respirations: normal, no use of accessory muscles, no retractions, labored breathing, is not present, Breath sounds: are clear throughout, no decreased breath sounds, no stridor, no wheezing, cp 07/29 02:35 Abdomen/GI: Inspection: abdomen appears normal, Palpation: abdomen is soft cp and non-tender, in all quadrants, cp 07/29 02:35 Neuro: Orientation: to person, place \T\ time. Mentation: is normal, Motor: cp moves all fours, strength is normal, cp
--- NOTE | 2024-07-28 07:01 | RAD REPORT ---
EXAM: Soft Tissue Neck W/Contr INDICATION: bleeding from surgical site TECHNIQUE: Helical CT examination of the neck with IV contrast. Sagittal and coronal reformations wer e generated. This exam was performed according to our departmental dose-optimization program, which includes automated exposure control, adjustment of the mA and/or kV according to patient size and/or use of iterative reconstruction technique. COMPARISON: 10/08/2019 FINDINGS: Aerodigestive Tract Structures: Prevertebral edema is present with some blunting of the hypopharynx a nd trachea anteriorly. There is fluid in the soft tissues of the left aspect of the neck as well as some gas which is likely postoperative. No enhancing fluid collections present. The airway is patent. Lymph Nodes: No pathologic appearing cervical lymph nodes. Parotid Glands: 14 mm cystic lesion abutting the parotid gland on the left. A smaller hypoattenuating lesion measuring to 9 mm is also noted. These are not significantly changed. Submandibular Glands: Normal Thyroid Gland: Normal Included Intracranial Structures: Normal Included Orbits: Normal Paranasal Sinuses: Predominantly clear Tympanomastoid Cavities: Normal Vascular Structures: Atherosclerotic changes. Osseous Structures: Surgical changes from recent C3-T1 ACDF. Included Lung Apices: Emphysema. IMPRESSION: Surgical changes from recent C3-T1 ACDF. Prevertebral and left neck edema with nonloculated/nonenhanc ing fluid and trace gas present. If the surgery was within the past week, these findings are likely postsurgical and not unexpected particularly given the extent of the surgery. No findings to suggest abscess or significant airway impingement at this time. Grossly, no evidence to suggest a large abnormal acute hematoma or active bleeding.
[2024-07-28 11:58] VITALS: TEMP 98.5
[2024-07-28 12:08] VITALS: BP 124/79; O2SAT 95
--- NOTE | 2024-07-30 12:10 | EKG ---
Test Date: 2024-07-28 Test Time: 02:39:11 [employer]: [employer] MEASUREMENT RESULTS: Intervals: Rate: 94 AK: 130 QRSD: 92 QT: 350 QTc: 437 [place]: P: 72 AK: 130 QRS: 76 T: 72 INTERPRETIVE STATEMENTS: Normal sinus rhythm Nonspecific T wave abnormality Abnormal ECG Compared to ECG 07/10/2023 16:51:41 T-wave abnormality now present Sinus arrhythmia no longer present Electronically Signed On 07-30-24 12:09:51 [employer] OR LUNCHROOM CHECKER by Bhavesh Chiu
== END 2024-07-28 06:32 | disposition home or self-care (01) ==
LOC: ER 02:06
DX: L76.22 Postprocedural hemorrhage of skin and subcutaneous tissue following other procedure (principal)
CPT/HCPCS: 96361; 93005; 85025; 80048; 36415; 83735; 85610; 80076; 85730; 84484; 70491; 71045; 96374; 99284; Q9967; J3010 ×2; J7040